=== PATIENT | female | born 1970 | race Caucasian/White ===

== ENCOUNTER 2020-08-25 19:50 | Emergency (ER) | payer OTHER ==
--- NOTE | 2020-08-25 20:19 | EDM.PDOC ---
ED HPI GENERAL MEDICAL PROBLEM - General Chief Complaint: General Stated Complaint: medical clearance Time Seen by Provider: 08/25/20 20:09 Source of Information: Reports: Patient History Limitations: Reports: No Limitations - History of Present Illness INITIAL COMMENTS - FREE TEXT/NARRATIVE: Presents with law enforcement for medical clearance. The patient states that she drank an unknown number of alcoholic beverages today. She was picked up on an outstanding warrant. Offers no complaints and denies any symptoms. Happy, cooperative, answers all questions appropriately. - Related Data Allergies Allergy/AdvReac Type Severity Reaction Status Date / Time No Known Allergies Allergy Verified 08/25/20 20:05 Home Meds: Home Meds . [No Known Home Meds] 12/28/15 [History] Past Medical History - Past Health History Medical/Surgical History: Denies Medical/Surgical History Psychiatric History: Reports: Addiction, Psych Hospitalization(s) Social & Family History - Family History Cardiac: Reports: [place] Neurological: Reports: Cerebral Palsy ED ROS GENERAL - Review of Systems Review Of Systems: Comprehensive ROS is negative, except as noted in HPI. ED EXAM, GENERAL - Physical Exam Exam: See Below Exam Limited By: No Limitations General Appearance: Alert, No Apparent Distress Ears: Normal External Exam Nose: Normal Inspection Throat/Mouth: Normal Inspection Head: Atraumatic, Normocephalic Neck: Normal Inspection Respiratory/Chest: No Respiratory Distress, Lungs Clear, Normal Breath Sounds Cardiovascular: Normal Peripheral Pulses, Regular Rate, Rhythm, No Murmur GI/Abdominal: Soft Extremities: Normal Inspection Neurological: Alert, Oriented, Normal Cognition Psychiatric: Normal Affect, Normal Mood Skin Exam: Warm, Dry, Intact, Normal Color, No Rash Lymphatic: No Adenopathy Course - Vital Signs Last Recorded V/S: Last Vital Signs Temp 36.1 C 08/25/20 20:03 Pulse 71 08/25/20 20:03 Resp 18 08/25/20 20:03 BP 115/76 08/25/20 20:03 Pulse Ox 96 08/25/20 20:03 - Orders/Labs/Meds Labs: Laboratory Tests 08/25/20 Range/Units 20:06 POC Glucose 81 (60-110) mg/dL Departure - Departure Time of Disposition: 20:18 Disposition: Home, Self-Care 01 Condition: Good Clinical Impression: Medical clearance for incarceration - Discharge Information Referrals: PCP,None [Primary Care Provider] - [facility] [Outside] [facility] [Outside] Additional Instructions: The following information is given to patients seen in the emergency department who are being discharged to home. This information is to outline your options for follow-up care. We provide all patients seen in our emergency department with a follow-up referral. The need for follow-up, as well as the timing and circumstances, are variable depending upon the specifics of your emergency department visit. If you don't have a primary care physician on staff, we will provide you with a referral. We always advise you to contact your personal physician following an emergency department visit to inform them of the circumstance of the visit and for follow-up with them and/or the need for any referrals to a consulting specialist. The emergency department will also refer you to a specialist when appropriate. This referral assures that you have the opportunity for follow-up care with a specialist. All of these measure are taken in an effort to provide you with optimal care, which includes your follow-up. Under all circumstances we always encourage you to contact your private physician who remains a resource for coordinating your care. When calling for follow-up care, please make the office aware that this follow-up is from your recent emergency room visit. If for any reason you are refused follow-up, please contact the [facility] Emergency Department at and asked to speak to the emergency department charge nurse. Sepsis Event Note (ED) - Evaluation Sepsis Screening Result: No Definite Risk - Focused Exam Vital Signs: Vital Signs Temp Pulse Resp BP Pulse Ox 08/25/20 20:03 36.1 C 71 18 115/76 96
[2020-08-25 20:26] VITALS: BP 116/72; PULSE 76
== END 2020-08-25 20:26 | disposition home or self-care (01) ==
LOC: MW.ED 19:50
DX: Z02.89 Encounter for other administrative examinations (principal)
CPT/HCPCS: 82962; 99282; 99283

== ENCOUNTER 2023-01-31 10:08 | Emergency (ER) | payer OTHER ==
[2023-01-31 10:51] LABS: APPEARANCE,URINE CLEAR; BILIRUBIN,URINE NEGATIVE (NEGATIVE); COLOR,URINE YELLOW; GLUCOSE,URINE NEGATIVE (NEGATIVE); KETONES,URINE NEGATIVE (NEGATIVE); LEUKOCYTE ESTERASE,URINE NEGATIVE (NEGATIVE); NITRITE,URINE NEGATIVE (NEGATIVE); OCCULT BLOOD,URINE TRACE-INTACT (NEGATIVE); PROTEIN,URINE NEGATIVE (NEGATIVE); UROBILINOGEN,URINE 0.2 EU/dL (<2.0)
[2023-01-31 11:47] LABS: BACTERIA,URINE FEW (NEGATIVE); EPITHELIAL CELLS,URINE RARE (NONE-FEW); RBC,URINE 0-1 (0-2/HPF); WBC,URINE NONE SEEN (0-5/HPF)
[2023-01-31 12:08] VITALS: BP 142/86; PULSE 82
== END 2023-01-31 12:07 | disposition home or self-care (01) ==
LOC: MW.ED 10:08
DX: N39.0 Urinary tract infection, site not specified (principal)
CPT/HCPCS: 81001; 99282; 99283

== ENCOUNTER 2024-04-14 17:36 | Emergency (ER) | payer SELFPAY | END 2024-04-14 18:56 | disposition left against medical advice (07) | LOC: MW.ED 17:36 | DX: Z53.21 Procedure and treatment not carried out due to patient leaving prior to being seen by health care provider (principal) ==